=== PATIENT | female | born 1945 | race Caucasian/White ===

== ENCOUNTER 2021-06-01 17:04 | Emergency (ER) | payer MEDICARE, OTHER ==
--- NOTE | 2021-06-01 18:10 | EDM.PDOC ---
ED HPI GENERAL MEDICAL PROBLEM - General Chief Complaint: Lower Extremity Injury/Pain Stated Complaint: BLACK AND BLUE ON R LEG Time Seen by Provider: 06/01/21 18:09 Source of Information: Reports: Patient, Family - History of Present Illness INITIAL COMMENTS - FREE TEXT/NARRATIVE: Crys is a 75 y/o female who comes to the ER with with bruising to the right lower leg. She denies any specific injury, but noticed a small amount fo brusing to back of her right thigh a couple days ago. Now it it extended to the mid calf region and ity is very painful. She also is having right hip pain. She is having a hard time walking due to the pain. She is currently on Coumadin for Atrial Fib. Right Leg Pain Score (Numeric/FACES): 8 - Related Data Allergies Allergy/AdvReac Type Severity Reaction Status Date / Time No Known Allergies Allergy Verified 06/01/21 18:01 Home Meds: Home Meds Acetaminophen [Acetaminophen Extra Strength] 500 mg PO Q4HR PRN 07/05/14 [History] Amiodarone [Pacerone] 100 mg PO DAILY 07/05/14 [History] Aspirin [Halfprin] 81 mg PO DAILY 07/05/14 [History] Beta-Carotene(A)-Vits C,E/Mins [Vision Vitamins] 1 each PO BID 07/05/14 [History] Clobetasol [Clobetasol Propionate 0.05%] 1 applic TOP BID PRN 07/05/14 [History] Ferrous Sulfate 325 mg PO DAILY 07/05/14 [History] Hydrocodone/Acetaminophen [Hydrocodon-Acetaminophen 5-325] 1 each PO Q4HR PRN 07/05/14 [History] Insulin Aspart [Novolog] 1 unit SQ ASDIRECTED PRN 07/05/14 [History] Insulin Glarg,Human.Rec.Analog [LantUS] 12 unit SQ BID 07/05/14 [History] Levothyroxine [Sythroid] 100 mcg PO DAILY 07/05/14 [History] Omeprazole [Prilosec] 20 mg PO TID 07/05/14 [History] Simvastatin [Zocor] 10 mg PO BEDTIME 07/05/14 [History] Torsemide [Demadex] 20 mg PO DAILY 07/05/14 [History] Warfarin Sodium [Jantoven] 2.5 mg PO ASDIRECTED 07/05/14 [History] allopurinoL [Zyloprim] 100 mg PO DAILY 07/05/14 [History] Metoprolol Succinate [Toprol XL] 50 mg PO DAILY 08/13/14 [History] Social & Family History - Tobacco Use Tobacco Use Status *Q: Unknown Ever Used Tobacco Review of Systems - Review of Systems Review Of Systems: See Below Constitutional: Reports: No Symptoms Eyes: Reports: No Symptoms Ears: Reports: No Symptoms Nose: Reports: No Symptoms Mouth/Throat: Reports: No Symptoms Respiratory: Reports: No Symptoms Cardiovascular: Reports: No Symptoms GI/Abdominal: Reports: No Symptoms Genitourinary: Reports: No Symptoms Musculoskeletal: Reports: Leg Pain (right leg) Skin: Reports: Bruising (right leg) Neurological: Reports: No Symptoms Psychiatric: Reports: No Symptoms ED EXAM, GENERAL - Physical Exam Exam: See Below General Appearance: Alert, WD/WN, No Apparent Distress (Elderly female, sitting in a weehchair.) Ears: Hearing Grossly Normal Nose: Normal Inspection Head: Atraumatic, Normocephalic Respiratory/Chest: No Respiratory Distress Cardiovascular: Regular Rate, Rhythm GI/Abdominal: Soft (Female) Exam: Deferred Rectal (Female) Exam: Deferred Back Exam: Normal Inspection Extremities: Other (Note brusing with yellow colors in the right posterior leg region from upper thigh down to mid-calf region, entire leg is swollen when compared to the left. Painful ROM. Note tenderness over right hip region with palaption.) Course - Vital Signs Text/Narrative:: 1808 The patient was seen by the [employer]. Xray of the Hip/Pelvis ordered along with CT of the right leg. Also ordered labs. Last Recorded V/S: Last Vital Signs Temp 36.4 C 06/01/21 17:10 Pulse 70 06/01/21 17:10 Resp 18 06/01/21 17:10 BP 130/55 L 06/01/21 17:10 Pulse Ox 98 06/01/21 17:10 - Orders/Labs/Meds Orders: Active Orders 24 hr Category Date Time Status UA W/GUILLE RFLX IF INDICATED [URIN] Stat Lab 06/01/21 20:09 Ordered Labs: Laboratory Tests 06/01/21 06/01/21 06/01/21 Range/Units 19:00 19:00 19:00 WBC 10.7 H (4.0-10.0) x10^3/uL RBC 3.81 L (4.00-5.50) x10^6/uL Hgb 11.3 L (12.0-16.0) g/dL Hct 34.6 (33.0-47.0) % MCV 90.8 (78.0-93.0) fL MCH 29.7 (26.0-32.0) pg MCHC 32.7 (32.0-36.0) g/dL RDW Coeff of Haley 14.4 (10.0-15.0) % Plt Count 200 (130-400) x10^3/uL Immature Gran % (Auto) 0.20 (0.00-0.43) % Neut % (Auto) 76.4 (50.0-80.0) % Lymph % (Auto) 12.0 L (25.0-50.0) % Wilkin % (Auto) 7.8 (2.0-11.0) % Eos % (Auto) 3.0 (0.0-4.0) % Baso % (Auto) 0.6 (0.2-1.2) % Neut # (Auto) 8.2 H (1.8-7.7) x10^3/uL Lymph # (Auto) 1.3 (1.0-4.8) x10^3/uL Wilkin # (Auto) 0.8 (0.0-0.8) x10^3/uL Eos # (Auto) 0.3 (0.0-0.5) x10^3/uL Baso # (Auto) 0.1 (0.0-0.2) x10^3/uL Immature Gran # (Auto) 0.02 (0.00-0.07) x10^3/uL PT 43.1 H (9.9-12.5) SEC INR 3.9 H (2.0-3.5) APTT 41.1 H (25.6-32.8) SEC Sodium 143 (136-145) mmol/L Potassium 5.3 H (3.5-5.1) mmol/L Chloride 104 (98-107) mmol/L Carbon Dioxide 31 (21-32) mmol/L Anion Gap 13.3 (5-15) mmol/L BUN 53 H (7-18) mg/dL Creatinine 1.6 H (0.55-1.02) mg/dL Est Cr Clr Drug Dosing TNP Estimated GFR (MDRD) 31 Glucose 125 H (70-99) mg/dL Calcium 10.6 H (8.5-10.1) mg/dL Corrected Calcium 11.1 H (8.5-10.1) mg/dL Total Bilirubin 0.7 (0.2-1.0) mg/dL AST 27 (15-37) U/L ALT 21 (14-59) U/L Alkaline Phosphatase 94 (46-116) U/L Total Protein 8.1 (6.4-8.2) g/dL Albumin 3.4 (3.4-5.0) g/dL Globulin 4.7 Albumin/Globulin Ratio 0.72 Departure - Departure Time of Disposition: 20:26 Disposition: Home, Self-Care 01 Condition: Good Clinical Impression: Over-anticoagulated, FPC current use of anticoagulant Thigh hematoma Qualifiers: Encounter type: initial encounter Laterality: right Qualified Code(s): S70.11XA - Contusion of right thigh, initial encounter - Discharge Information Instructions: Hematoma Referrals: Prateek Myles MD [Primary Care Provider] - Forms: ED Department Discharge Additional Instructions: -HOLD your Coumadin dose Tuesday and Tuesday -Make an appointment to be seen at the [facility] for recheck on Tuesday. They will tell you when to recheck your INR an advise you on further dosing. -Apply warm packs to the right thigh region to help with pain -Use acetaminophen 325mg 2 tablets oral every 4 hours as needed for pain -Tramadol 50mg oral every 6 hours as needed for severe pain #8(ER) -Monitor for any further bleeding or any other concerns and call your PCP or return to the ER Sepsis Event Note (ED) - Focused Exam Vital Signs: Vital Signs Temp Pulse Resp BP Pulse Ox 06/01/21 17:10 36.4 C 70 18 130/55 L 98 - Problem List & Annotations (1) Thigh hematoma SNOMED Code(s): 643008227 Code(s): S70.10XA - CONTUSION OF UNSPECIFIED THIGH, INITIAL ENCOUNTER Status: Acute Current Visit: Yes Annotation/Comment:: CT notes hematoma 11 x 6 x 4cm in right lower extremity, does not note active bleeding. APAP/Tramadol for pain, with warm packs. VIDA wrap to thigh for comfort. Qualifiers: Encounter type: initial encounter Laterality: right Qualified Code(s): S70.11XA - Contusion of right thigh, initial encounter (2) FPC current use of anticoagulant SNOMED Code(s): 715343802 Code(s): Z79.01 - KILN CHARGER (CURRENT) USE OF ANTICOAGULANTS Status: Acute Current Visit: Yes Annotation/Comment:: Hold Coumadin Tuesday and Tuesday, FU at [facility] Tuesday for INR and further instrucitons. (3) Over-anticoagulated SNOMED Code(s): 17066811, 477105450 Code(s): VLR8086 - Status: Acute Current Visit: Yes Annotation/Comment:: INR=3.6 - Problem List Review Problem List Initiated/Reviewed/Updated: Yes - My Orders Last 24 Hours: My Active Orders 06/01/21 20:09 UA W/GUILLE RFLX IF INDICATED [URIN] Stat - Assessment/Plan Last 24 Hours: My Active Orders 06/01/21 20:09 UA W/GUILLE RFLX IF INDICATED [URIN] Stat Plan: See above
[2021-06-01 19:16] LABS: PTT,PARTIAL THROMBOPLSTIN TIME 41.1 SEC (25.6-32.8)
[2021-06-01 19:18] LABS: CHLORIDE,CL 104 mmol/L (98-107); SODIUM,NA 143 mmol/L (136-145)
[2021-06-01 19:20] LABS: ANION GAP 13.3 mmol/L (5-15)
--- NOTE | 2021-06-01 19:34 | CR ---
[id number] RAD/RAD Pelvis 1V W 2V Right Hip EXAM: RAD Pelvis 1V W 2V Right Hip INDICATION: RIGHT HIP PAIN, UNKNOWN TRAUMA. COMPARISON: None. 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 Probable calcified uterine leiomyomata. Arterial calcifications. Surgical clips left lower quadrant. Lumbar spondylosis. No acute fracture or dislocation is identified. IMPRESSION: 1. Moderate osteoarthritis. Hola Montelongo MD 06/01/21 1933 Thank you for allowing us to participate in the care of your patient.
--- NOTE | 2021-06-01 19:52 | CT ---
[id number] CT/CT Tibia Fibula Right WO IV EXAM: CT Tibia Fibula Right WO IV INDICATION: UNEXPLAINED BRUISING, NO INJURY, ON COUMADIN. COMPARISON: Radiograph same date. DISCUSSION: Unenhanced CT performed of the right femur and upper leg. In the mid to distal hamstring muscle there is a heterogeneous hyperdense collection measuring about 11 x 6 x 4 cm and is most consistent with a hematoma. Infiltrating subcutaneous edema throughout the imaged segments of the right lower extremity. No fracture or bone lesion is identified. Moderate osteoarthritis of the hip and knee. Multiple calcified uterine leiomyomata. Lower lumbar spondylolisthesis. IMPRESSION: 1. 11 x 6 x 4 cm hematoma in the mid to distal flexor muscle compartment of the thigh. Hola Montelongo MD 06/01/211950 Thank you for allowing us to participate in the care of your patient.
[2021-06-01] MEDS ORDERED: Take Home: traMADol 50 MG, 4 Tab Pack PO ONE (20:27)
== END 2021-06-01 20:42 | disposition home or self-care (01) ==
LOC: VM.ED 17:04
DX: S70.11XA Contusion of right thigh, initial encounter (principal); Z79.01 Long term (current) use of anticoagulants; Z79.82 Long term (current) use of aspirin; Z79.899 Other long term (current) drug therapy; X58.XXXA Exposure to other specified factors, initial encounter
CPT/HCPCS: 36415; 73700; 80053; 85025; 85610; 85730; 99283; 99284-25; A9270-GY